=== PATIENT | female | born 1955 | race Caucasian/White ===

== ENCOUNTER 2020-10-16 10:39 | Observation (INO) ==
[2020-10-16] MEDS ORDERED: Nitroglycerin 0.4 MG TAB.SUBL SL PRN (13:15)
[2020-10-16] MEDS: (Omega-3/Dha/Epa/Fish Oil [Fish Oil 1,000 Mg Softgel] PO SCH ×2 (13:45→20:26)
[2020-10-16] MEDS: 0.9 % Sodium Chloride 1,000 ML IVC SCH (20:08)
[2020-10-17 03:38] LABS: Calcium 9.1 mg/dL (8.6-10.3); Potassium 4.1 mEq/L (3.5-5.1)
[2020-10-17] MEDS: lisinopriL 5 MG TABLET PO SCH (08:39)
[2020-10-17] MEDS: (Omega-3/Dha/Epa/Fish Oil [Fish Oil 1,000 Mg Softgel] PO SCH ×3 (08:39→21:48)
[2020-10-17] MEDS ORDERED: Aspirin Enteric Coated 81 MG Tablet PO SCH (09:00)
[2020-10-17] MEDS ORDERED: *HR* Heparin 10,000 UNIT/10 ML VIAL ONE ×2 (13:41→15:53)
[2020-10-17] MEDS ORDERED: Nitroglycerin 1,000 MCG/5 ML VIAL IV ONE (13:42)
[2020-10-17] MEDS ORDERED: Heparin 1,000 UNITS/500 mL 500 ML ONE ×2 (13:42→15:16)
[2020-10-17] MEDS ORDERED: ISOVUE-370 200 ML INFUS..BTL ONE ×2 (13:42→15:59)
[2020-10-17] MEDS ORDERED: 0.9 % Sodium Chloride 2,000 ML ONE (13:42)
[2020-10-17] MEDS ORDERED: *HR* FentaNYL (PF) 100 MCG/2 ML VIAL ONE (14:09)
[2020-10-17] MEDS ORDERED: *HR* Midazolam HCl 2 MG/2 ML VIAL ONE (14:10)
[2020-10-17] MEDS ORDERED: *HR* Ticagrelor 90 MG TABLET ONE (15:42)
[2020-10-17] MEDS ORDERED: 0.9 % Sodium Chloride 1,000 ML ONE (15:45)
[2020-10-17] MEDS ORDERED: Tirofiban 12.5 MG/250ML 12.5 MG/250 ML BAG ONE (15:45)
[2020-10-17] MEDS ORDERED: *HR* Nitroprusside 50 MG VIAL IVC ONE (15:54)
[2020-10-17] MEDS ORDERED: D5% in Water 250 ML ONE (15:55)
[2020-10-17] MEDS: 0.9 % Sodium Chloride 1,000 ML IVC SCH ×2 (17:56→18:33)
[2020-10-18] MEDS: 0.9 % Sodium Chloride 1,000 ML IVC SCH (02:17)
[2020-10-18 07:08] LABS: Calcium 8.5 mg/dL (8.6-10.3); Potassium 4.4 mEq/L (3.5-5.1)
[2020-10-18] MEDS: lisinopriL 5 MG TABLET PO SCH (08:39)
[2020-10-18] MEDS: (Omega-3/Dha/Epa/Fish Oil [Fish Oil 1,000 Mg Softgel] PO SCH ×2 (08:40→12:26)
[2020-10-18] MEDS ORDERED: Aspirin 81 MG TAB.CHEW PO SCH (09:00)
[2020-10-18 10:21] LABS: Hematocrit 35.9 % (35.3-44.9)
[2020-10-18 10:49] VITALS: PULSE 69; TEMP 98.4; O2SAT 96
[2020-10-18 12:25] VITALS: BP 148/76
== END 2020-10-18 13:44 | disposition home or self-care (01) ==
LOC: 3BNU
PROVIDERS: ADMIT Internal Medicine Cardiovascular Disease; ATTEND Internal Medicine Cardiovascular Disease

== ENCOUNTER 2021-09-30 14:54 | Observation (INO) ==
[2021-09-30 15:36] LABS: Basophils % 0.1 %; Hematocrit 34.7 % (35.3-44.9); Hemoglobin 11.6 g/dL (11.5-15.4); Immature Granulocytes % 1.4 % (0-4); Lymphocytes # 1.7 K/mcL (0.6-4.6); Lymphocytes % 12.2 %; Mean Corpuscular HGB Conc 33.4 g/dL (31.6-35.5); Mean Corpuscular Volume 95.9 fL (83.0-100.0); Mean Platelet Volume 8.7 fL (9.4-12.4); Monocytes # 1.3 K/mcL (0.0-1.3); Monocytes % 9.4 %; Neutrophils # 10.7 K/mcL (1.6-8.9); Platelet Count 231 K/mcL (140-400); Red Blood Count 3.62 M/mcL (3.82-4.97); Red Cell Distribution Width 13.4 % (11.5-14.5); Segmented Neutrophils % 76.9 %; White Blood Count 13.9 K/mcL (4.3-11.1)
[2021-09-30 15:58] LABS: Calcium 9.1 mg/dL (8.6-10.3); Potassium 4.2 mEq/L (3.5-5.1); Troponin I 0.04 ng/mL (< 0.04)
[2021-09-30] MEDS ORDERED: 0.9 % Sodium Chloride 500 ML IVC ONE (16:03)
[2021-09-30 16:30] LABS: Bacteria,Urine Moderate per hpf (None-Few); Bilirubin,Urine Negative (Negative); Blood,Urine Negative (Negative); Clarity,Urine Turbid (Clear); Color,Urine Light-Yellow (Yellow); Glucose,Urine (UA) Normal (Normal); Hyaline Casts,Urine Few per lpf (None Seen); Ketones,Urine Negative (Negative); Leukocyte Esterase,Urine Large (Negative); Mucus,Urine Few per lpf (None-Few); Nitrite,Urine Negative (Negative); Protein,Urine 30 mg/dL (Neg-Trace); RBC,Urine 0-3 per hpf (0-3); Specific Gravity,Urine 1.026 (1.010-1.025); Squamous Epithelial Cell,Urine Few per hpf (None-Few); Urobilinogen,Urine Normal (Normal); WBC,Urine TNTC per hpf (0-3)
[2021-09-30] MEDS ORDERED: Aspirin 81 MG TAB.CHEW PO ONE (16:31)
[2021-09-30 17:40] LABS: Adenovirus Not Detected (Not Detect); Bordetella Pertussis Not Detected (Not Detect); Chlamydophila pneumoniae Not Detected (Not Detect); Coronavirus 229E Not Detected (Not Detect); Coronavirus HKU1 Not Detected (Not Detect); Coronavirus NL63 Not Detected (Not Detect); Coronavirus OC43 Not Detected (Not Detect); Human Metapneumovirus Not Detected (Not Detect); Human Rhinovirus/Enterovirus Not Detected (Not Detect); Influenza A Subtype 2009 H1 Not Detected (Not Detect); Influenza B Not Detected (Not Detect); Mycoplasma pneumoniae Not Detected (Not Detect); Parainfluenza Virus 1 Not Detected (Not Detect); Parainfluenza Virus 2 Not Detected (Not Detect); Parainfluenza Virus 3 Not Detected (Not Detect); Parainfluenza Virus 4 Not Detected (Not Detect); Respiratory Syncytial Virus Not Detected (Not Detect); SARS-CoV-2 Not Detected (Not Detect)
[2021-09-30] MEDS ORDERED: *HR* Heparin 5,000 UNIT/ML VIAL IVP ONE (19:09)
[2021-09-30] MEDS ORDERED: *HR* Heparin 5,000 UNIT/ML VIAL IVP PRN ×2 (19:09)
[2021-09-30] MEDS ORDERED: Heparin 25,000UNIT/250ML 1/2NS 25,000 UNIT/250 ML IV.SOLN IVC SCH (19:15)
[2021-09-30] MEDS ORDERED: Azithromycin 500 MG in 0.9 % Sodium Chloride 250 ML IVPB ONE (19:21)
[2021-09-30] MEDS ORDERED: cefTRIAXone 1,000 MG in 0.9 % Sodium Chloride 10 ML IVP ONE (19:21)
[2021-09-30] MEDS ORDERED: Ondansetron 4 MG/2 ML VIAL IVP PRN (19:41)
[2021-09-30] MEDS ORDERED: Naloxone 0.4 MG/ML INJ IVP PRN (19:41)
[2021-09-30 19:46] LABS: Hematocrit 34.4 % (35.3-44.9); Hemoglobin 11.3 g/dL (11.5-15.4); Mean Corpuscular HGB Conc 32.8 g/dL (31.6-35.5); Mean Corpuscular Hemoglobin 32.4 pg (28.0-33.3); Mean Corpuscular Volume 98.6 fL (83.0-100.0); Mean Platelet Volume 8.7 fL (9.4-12.4); Platelet Count 223 K/mcL (140-400); Red Blood Count 3.49 M/mcL (3.82-4.97); Red Cell Distribution Width 13.3 % (11.5-14.5); White Blood Count 14.9 K/mcL (4.3-11.1)
[2021-09-30] MEDS ORDERED: Perflutren Lipid Microsphere 1.3 ML in 0.9 % Sodium Chloride 8.7 ML IVP PRN (19:46)
[2021-09-30 19:56] LABS: Heparin anti-factor XA UFH 0.04 IU/mL (0.30-0.70)
[2021-09-30 19:57] LABS: Prothrombin Time 10.6 Seconds (9.4-12.1)
[2021-09-30] MEDS: Acetaminophen 325 MG TABLET PO PRN (22:41)
[2021-10-01 03:37] LABS: Basophils % 0.1 %; Eosinophils # 0.1 K/mcL (0.0-0.6); Eosinophils % 0.4 %; Hemoglobin 10.4 g/dL (11.5-15.4); Immature Granulocytes % 1.3 % (0-4); Lymphocytes # 3.9 K/mcL (0.6-4.6); Lymphocytes % 27.4 %; Mean Corpuscular HGB Conc 32.5 g/dL (31.6-35.5); Mean Corpuscular Hemoglobin 32.2 pg (28.0-33.3); Mean Corpuscular Volume 99.1 fL (83.0-100.0); Mean Platelet Volume 8.6 fL (9.4-12.4); Monocytes % 7.3 %; Neutrophils # 8.9 K/mcL (1.6-8.9); Platelet Count 197 K/mcL (140-400); Red Blood Count 3.23 M/mcL (3.82-4.97); Red Cell Distribution Width 13.4 % (11.5-14.5); Segmented Neutrophils % 63.5 %
[2021-10-01 03:58] LABS: Albumin 3.4 g/dL (3.5-5.7); Albumin/Globulin Ratio 1.7 (1.1-2.2); Bilirubin,Direct 0.1 mg/dL (0.0-0.2); Bilirubin,Indirect 0.2 mg/dL (0.0-1.0); Bilirubin,Total 0.3 mg/dL (0.3-1.0); Calcium 8.5 mg/dL (8.6-10.3); Chol/HDL Ratio 2.9 (0-4.9); Magnesium 1.9 mg/dL (1.6-2.6); Phosphorous 2.7 mg/dL (2.7-4.5); Total Protein 5.4 g/dL (6.4-8.9)
[2021-10-01 04:09] LABS: Thyroid Stimulating Hormone 0.754 mcIU/mL (0.340-5.600)
[2021-10-01] MEDS: Aspirin Enteric Coated 81 MG Tablet PO SCH (08:52)
[2021-10-01] MEDS: lisinopriL 5 MG TABLET PO SCH (08:52)
[2021-10-01] MEDS: Acetaminophen 325 MG TABLET PO PRN (08:52)
[2021-10-01] MEDS ORDERED: *HR* Heparin 10,000 UNIT/10 ML VIAL ONE (13:50)
[2021-10-01] MEDS ORDERED: Heparin 1,000 UNITS/500 mL 500 ML ONE (13:50)
[2021-10-01] MEDS ORDERED: 0.9 % Sodium Chloride 2,000 ML ONE (13:50)
[2021-10-01] MEDS ORDERED: Iopamidol - 370 200 ML INFUS..BTL ONE (13:51)
[2021-10-01] MEDS ORDERED: Nitroglycerin 1,000 MCG/5 ML VIAL IV ONE (13:51)
[2021-10-01] MEDS ORDERED: *HR* FentaNYL (PF) 100 MCG/2 ML VIAL ONE (14:03)
[2021-10-01] MEDS ORDERED: *HR* Midazolam HCl 2 MG/2 ML VIAL ONE (14:03)
[2021-10-01] MEDS: 0.9 % Sodium Chloride 1,000 ML IVC SCH (17:09)
[2021-10-01] MEDS ORDERED: cefTRIAXone 1,000 MG in 0.9 % Sodium Chloride 10 ML IVP SCH (18:00)
[2021-10-01] MEDS ORDERED: Azithromycin 250 MG TABLET PO SCH (18:00)
[2021-10-01] MEDS ORDERED: NON-FORMULARY MEDICATION 1 EACH EACH (Atorvastatin Calcium [Lipitor] 80 MG Tablet) PO SCH (21:00)
[2021-10-02] MEDS: 0.9 % Sodium Chloride 1,000 ML IVC SCH (06:35)
[2021-10-02] MEDS: Aspirin Enteric Coated 81 MG Tablet PO SCH (08:23)
[2021-10-02] MEDS: lisinopriL 5 MG TABLET PO SCH (08:24)
[2021-10-02] MEDS ORDERED: lisinopriL 5 MG TABLET PO SCH (09:00)
[2021-10-02 09:05] LABS: Basophils % 0.2 %; Eosinophils # 0.5 K/mcL (0.0-0.6); Hematocrit 35.4 % (35.3-44.9); Hemoglobin 11.3 g/dL (11.5-15.4); Immature Granulocytes % 1.1 % (0-4); Lymphocytes # 2.7 K/mcL (0.6-4.6); Lymphocytes % 23.7 %; Mean Corpuscular HGB Conc 31.9 g/dL (31.6-35.5); Mean Corpuscular Hemoglobin 32.4 pg (28.0-33.3); Mean Corpuscular Volume 101.4 fL (83.0-100.0); Mean Platelet Volume 8.6 fL (9.4-12.4); Monocytes % 8.5 %; Neutrophils # 7.1 K/mcL (1.6-8.9); Platelet Count 204 K/mcL (140-400); Red Blood Count 3.49 M/mcL (3.82-4.97); Segmented Neutrophils % 62.5 %; White Blood Count 11.4 K/mcL (4.3-11.1)
[2021-10-02 09:22] LABS: Calcium 8.7 mg/dL (8.6-10.3); Potassium 4.5 mEq/L (3.5-5.1)
[2021-10-02] MEDS ORDERED: Isosorbide MONOnitrate (24 HR) 30 MG TAB.ER.24H PO SCH (10:00)
[2021-10-02 10:47] VITALS: BP 133/79; PULSE 62; TEMP 97.8; O2SAT 97
== END 2021-10-02 14:35 | disposition home or self-care (01) ==
LOC: 3BNU 14:54 → EMEROOARM 14:54 → SUATTDRO 19:01 → 3BNU 19:52
PROVIDERS: ADMIT General Practice; ATTEND Registered Nurse